=== PATIENT | female | born 1985 | race Caucasian/White ===

== ENCOUNTER 2017-10-09 01:20 | Emergency (ER) | payer MEDICAID ==
[~2017-10-09] VITALS: Ht 160 cm; Wt 81.6 kg
[2017-10-09 01:25] VITALS: BP 129/83
--- NOTE | 2017-10-09 01:30 | NUR ---
32/F CAME IN W C/O FACIAL RASH. REDNESS/RASH WITH WHITE PUSTULES ON RT CHIN NOTED. PT REPORTS ITCHINESS. DENIES FEVER/CHILL, N/V. DENIES OTHER PMH/RX/OTC
[2017-10-09 03:45] VITALS: BP 119/67
--- NOTE | 2017-10-09 03:45 | NUR ---
Patient discharged with v/s stable. Written and verbal after care instructions given and explained. Patient alert, oriented and verbalized understanding of instructions. Ambulatory with steady gait. All questions addressed prior to discharge. ID band removed. Patient advised to follow up with PMD. Rx of BENADRYL, KEFLEX, MUPIROCIN given. Patient educated on indication of medication including possible reaction and side effects. Opportunity to ask questions provided and answered.
== END 2017-10-09 03:45 | disposition home or self-care (01) ==
LOC: MED 01:20
DX: L01.00 Impetigo, unspecified (principal); R21 Rash and other nonspecific skin eruption
CPT/HCPCS: 99283

== ENCOUNTER 2018-12-06 22:20 | Emergency (ER) | payer MEDICAID ==
--- NOTE | 2018-12-06 22:42 | NUR ---
CALLED TO TRIAGE PT, NO ANSWER IN LOBBY. WILL TRY AGAIN
--- NOTE | 2018-12-06 23:00 | NUR ---
CALLED FOR PT IN WAITING ROOM, NO ANSWER FOR SECOND TIME
--- NOTE | 2018-12-06 23:11 | NUR ---
Thuy whitt in ED - 12/06/18 at 2312 by LAMAR CALLED FOR PT, NO ANSWER, PT LWBS AT [phone]
--- NOTE | 2018-12-06 23:12 | NUR ---
CALLED FOR PT, NO ANSWER, PT LWBS AT [phone]
== END 2018-12-06 22:42 | disposition left against medical advice (07) ==
LOC: MED 22:20
DX: R51 Headache (principal); Z53.21 Procedure and treatment not carried out due to patient leaving prior to being seen by health care provider

== ENCOUNTER 2021-03-03 21:44 | Emergency (ER) | payer MEDICAID ==
[~2021-03-03] VITALS: Ht 160 cm; Wt 79.4 kg
[2021-03-03 22:05] VITALS: BP 121/68
--- NOTE | 2021-03-03 22:07 | NUR ---
triaged and waiting in ER lobby.
--- NOTE | 2021-03-03 22:44 | NUR ---
TO ED bed 02
[2021-03-04] MEDS ORDERED: DEXAMETHASONE 4 MG/ML VIAL IM ONE (00:20)
[2021-03-04] MEDS ORDERED: IBUP-2218 PO (00:23)
[2021-03-04 00:45] VITALS: BP 111/55
--- NOTE | 2021-03-04 00:51 | NUR ---
d.c with VSS. d/c education given. opportunity to ask questions given and answered. rx of motrin given.
== END 2021-03-04 00:51 | disposition home or self-care (01) ==
LOC: MED 21:44
DX: J02.9 Acute pharyngitis, unspecified (principal); Z79.899 Other long term (current) drug therapy
CPT/HCPCS: 81025; 87081; 96372; 99283; J1100

== ENCOUNTER 2022-12-20 13:31 | Emergency (ER) | payer MEDICAID, OTHER ==
[~2022-12-20] VITALS: Ht 160 cm; Wt 77.1 kg
[~2022-12-20 13:31] MED LIST: IBUP-2218 PO
[2022-12-20 13:44] VITALS: BP 136/78
--- NOTE | 2022-12-20 14:18 | NUR ---
37yo/f bibf w c/o missed seen at pcp on 12/13/22 passed fetus of 11weeks on monday, now wants to verify everything came out and does not need d and c. pt reports LLQ tenderness, + vaginal spotting. denies dizziness, fevers, chills, n/v/d or other symptoms. vss pmh: anemia allergies: denies
[2022-12-20 14:40] LABS: BASOPHILS # (AUTO) 0.1 K/uL (0.00-0.22); BASOPHILS % (AUTO) 1.1 % (0.0-2.0); EOSINOPHILS # (AUTO) 0.1 K/uL (0-0.4); EOSINOPHILS % (AUTO) 1.2 % (0.0-4.0); HEMOGLOBIN 10.6 g/dL (12.0-16.0); LYMPHOCYTES # (AUTO) 2.9 K/uL (2.5-16.5); LYMPHOCYTES % (AUTO) 36.6 % (20.5-51.1); MEAN CORPUSCULAR HEMOGLOBIN 23 pg (27-31); MEAN CORPUSCULAR HGB CONC 31 g/dL (33-37); MEAN CORPUSCULAR VOLUME 74.4 fL (80-94); MONOCYTES # (AUTO) 0.5 K/uL (0.8-1.0); NEUTROPHILS # (AUTO) 4.3 K/uL (1.8-7.7); NEUTROPHILS % (AUTO) 54.1 % (42.2-75.2); PLATELET COUNT (AUTO) 275 K/uL (140-450); RED BLOOD CELL COUNT(AUTO) 4.58 MIL/uL (4.20-5.40); RED CELL DISTRIBUTION WIDTH 23.6 % (11.6-13.7); WHITE BLOOD COUNT (AUTO) 7.9 K/uL (4.8-10.8)
--- NOTE | 2022-12-20 14:56 | NUR ---
US at bedside
[2022-12-20 16:31] VITALS: BP 127/79
--- NOTE | 2022-12-20 16:31 | NUR ---
Patient discharged with v/s stable. Written and verbal after care instructions given and explained. Patient verbalized understanding. Ambulatory with steady gait. All questions addressed prior to discharge. Advised to follow up with PMD.
== END 2022-12-20 16:31 | disposition home or self-care (01) ==
LOC: MED 13:31
DX: O03.9 Complete or unspecified spontaneous abortion without complication (principal); O99.111 Other diseases of the blood and blood-forming organs and certain disorders involving the immune mechanism complicating pregnancy, first trimester; D64.9 Anemia, unspecified; Z3A.11 11 weeks gestation of pregnancy; Z79.1 Long term (current) use of non-steroidal anti-inflammatories (NSAID)
CPT/HCPCS: 36415; 76817; 84702; 85025; 86900; 86901; 99284; Q0092

== ENCOUNTER 2023-05-07 17:27 | Emergency (ER) | payer OTHER ==
[~2023-05-07] VITALS: Ht 160 cm; Wt 79.9 kg
[2023-05-07 18:04] VITALS: BP 131/88; PULSE 70; RESP 18; TEMP 97.9; O2SAT 100
[2023-05-07] MEDS ORDERED: ONDANSETRON 4 MG ODT PO ONE (18:35)
[2023-05-07] MEDS ORDERED: KETOROLAC 30 MG/ML VIAL IM ONE (18:35)
--- NOTE | 2023-05-07 19:38 | NUR ---
PT RETURN FROM XRAY
[2023-05-07] MEDS ORDERED: IBUP-2213 PO (19:48)
[2023-05-07] MEDS ORDERED: ACET-8905 PO (19:48)
[2023-05-07 20:01] VITALS: BP 127/83; PULSE 79; RESP 15; TEMP 97.8; O2SAT 100
--- NOTE | 2023-05-07 20:01 | NUR ---
Patient discharged with v/s stable. Written and verbal after care instructions given and explained. Patient alert, oriented and verbalized understanding of instructions. Ambulatory with steady gait. All questions addressed prior to discharge. ID band removed. Patient advised to follow up with PMD. Rx of Ibuprofen, [place] given. Patient educated on indication of medication including possible reaction and side effects. Opportunity to ask questions provided and answered.
== END 2023-05-07 20:01 | disposition home or self-care (01) ==
LOC: MED 17:27
DX: S00.83XA Contusion of other part of head, initial encounter (principal); R11.10 Vomiting, unspecified; Z79.899 Other long term (current) drug therapy; Y04.2XXA Assault by strike against or bumped into by another person, initial encounter; Y93.89 Activity, other specified; Y92.89 Other specified places as the place of occurrence of the external cause; Y99.8 Other external cause status
CPT/HCPCS: 70150; 70450; 96372; 99285; J1885; Q0162

== ENCOUNTER 2023-06-21 16:00 | Emergency (ER) | payer OTHER ==
[~2023-06-21] VITALS: Ht 160 cm; Wt 85.0 kg
[~2023-06-21 16:00] MED LIST changes: +ACET-8905 PO; +IBUP-2213 PO
[2023-06-21 16:14] VITALS: BP 138/75; PULSE 94; RESP 18; TEMP 97.8; O2SAT 98
== END 2023-06-21 17:39 | disposition home or self-care (01) ==
LOC: MED 16:00
DX: S00.01XA Abrasion of scalp, initial encounter (principal); W22.8XXA Striking against or struck by other objects, initial encounter; Y92.89 Other specified places as the place of occurrence of the external cause; Y93.89 Activity, other specified; Y99.8 Other external cause status
CPT/HCPCS: 90471; 90715; 99283

== ENCOUNTER 2023-08-10 15:46 | Emergency (ER) | payer OTHER ==
[~2023-08-10] VITALS: Ht 160 cm; Wt 81.6 kg
[2023-08-10 16:04] VITALS: BP 143/84; PULSE 76; RESP 18; TEMP 97.3; O2SAT 99
[2023-08-10 17:13] LABS: BASOPHILS % (AUTO) 0.4 % (0.0-2.0); EOSINOPHILS # (AUTO) 0.1 K/uL (0-0.4); EOSINOPHILS % (AUTO) 1.4 % (0.0-4.0); HEMATOCRIT 34.5 % (36-48); HEMOGLOBIN 11.2 g/dL (12.0-16.0); LYMPHOCYTES # (AUTO) 2.8 K/uL (2.5-16.5); LYMPHOCYTES % (AUTO) 28.5 % (20.5-51.1); MEAN CORPUSCULAR HEMOGLOBIN 26 pg (27-31); MEAN CORPUSCULAR HGB CONC 33 g/dL (33-37); MEAN CORPUSCULAR VOLUME 79.6 fL (80-94); MONOCYTES # (AUTO) 0.7 K/uL (0.8-1.0); MONOCYTES % (AUTO) 6.8 % (1.7-9.3); NEUTROPHILS # (AUTO) 6.2 K/uL (1.8-7.7); NEUTROPHILS % (AUTO) 62.9 % (42.2-75.2); PLATELET COUNT (AUTO) 271 K/uL (140-450); RED BLOOD CELL COUNT(AUTO) 4.34 MIL/uL (4.20-5.40); RED CELL DISTRIBUTION WIDTH 19.8 % (11.6-13.7); WHITE BLOOD COUNT (AUTO) 9.9 K/uL (4.8-10.8)
[2023-08-10 17:15] LABS: APPEARANCE,URINE CLEAR (CLEAR); BILIRUBIN,URINE NEGATIVE (NEGATIVE); BLOOD, URINE NEGATIVE (NEGATIVE); COLOR,URINE YELLOW (YELLOW); LEUKOCYTE ESTERASE ,URINE NEGATIVE (NEGATIVE); NITRITE, URINE NEGATIVE (NEGATIVE); PH,URINE 6.5 (5.0-9.0); PROTEIN,URINE NEGATIVE (NEGATIVE); UGLUCOSE NEGATIVE (NEGATIVE); UROBILINOGEN,URINE 0.2 EU/dL (0.2 - 1)
[2023-08-10 17:53] VITALS: BP 143/84; PULSE 76; RESP 18; TEMP 97.3; O2SAT 99
== END 2023-08-10 17:53 | disposition home or self-care (01) ==
LOC: MED 15:46
DX: O20.0 Threatened abortion (principal); O34.81 Maternal care for other abnormalities of pelvic organs, first trimester; N83.202 Unspecified ovarian cyst, left side; Z3A.08 8 weeks gestation of pregnancy; Z98.890 Other specified postprocedural states; Z79.899 Other long term (current) drug therapy; Z79.1 Long term (current) use of non-steroidal anti-inflammatories (NSAID)
CPT/HCPCS: 36415; 76817; 81003; 84702; 85025; 86900; 86901; 99284; Q0092

== ENCOUNTER 2023-10-10 10:22 | Emergency (ER) | payer OTHER ==
[~2023-10-10] VITALS: Ht 162.6 cm; Wt 72.6 kg
[2023-10-10 10:40] VITALS: BP 125/71; PULSE 86; RESP 20; TEMP 99; O2SAT 98
[2023-10-10] MEDS ORDERED: BENZ-300 PO (11:00)
[2023-10-10 11:38] VITALS: BP 125/71; PULSE 86; RESP 20; TEMP 99; O2SAT 98
[2023-10-10 13:33] LABS: FLU A ANTIGEN negative (NEGATIVE); FLU B ANTIGEN negative (NEGATIVE)
== END 2023-10-10 11:38 | disposition home or self-care (01) ==
LOC: MED 10:22
DX: O99.512 Diseases of the respiratory system complicating pregnancy, second trimester (principal); J02.9 Acute pharyngitis, unspecified; Z20.822 Contact with and (suspected) exposure to COVID-19; Z3A.16 16 weeks gestation of pregnancy; Z79.899 Other long term (current) drug therapy; Z79.1 Long term (current) use of non-steroidal anti-inflammatories (NSAID)
CPT/HCPCS: 99283

== ENCOUNTER 2023-11-02 09:40 | Observation (INO) | payer OTHER ==
[~2023-11-02] VITALS: Ht 160 cm; Wt 90.7 kg
[~2023-11-02 09:40] MED LIST changes: +BENZ-300 PO
[2023-11-02] MEDS ORDERED: PNV91TAB10 PO (10:35)
== END 2023-11-02 10:45 | disposition home or self-care (01) ==
LOC: MLD 09:40
PROVIDERS: ADMIT Obstetrics & Gynecology; ATTEND Obstetrics & Gynecology
DX: O26.892 Other specified pregnancy related conditions, second trimester (principal); R10.9 Unspecified abdominal pain; Z3A.21 21 weeks gestation of pregnancy
CPT/HCPCS: 81000; G0378

== ENCOUNTER 2024-03-07 05:20 | Inpatient (IN) | payer OTHER ==
[~2024-03-07] VITALS: Ht 160 cm; Wt 94.3 kg
[~2024-03-07 05:20] MED LIST changes: -ACET-8905 PO; -BENZ-300 PO; -IBUP-2213 PO; -IBUP-2218 PO; +PNV91TAB10 PO
[2024-03-07] MEDS ORDERED: LACTATED RINGERS 1,000 ML IV SCH ×2 (06:10→09:00)
[2024-03-07] MEDS ORDERED: METOCLOPRAMIDE 10 MG/2 ML INJ VIAL IVP ONE (06:10)
[2024-03-07] MEDS ORDERED: CITRIC ACID/SODIUM CITRATE 30 ML UDC PO ONE (06:10)
[2024-03-07 06:44] LABS: BASOPHILS # (AUTO) 0.1 K/uL (0.00-0.22); BASOPHILS % (AUTO) 1.7 % (0.0-2.0); EOSINOPHILS # (AUTO) 0.1 K/uL (0-0.4); EOSINOPHILS % (AUTO) 1.2 % (0.0-4.0); HEMATOCRIT 33.5 % (36-48); HEMOGLOBIN 11.6 g/dL (12.0-16.0); LYMPHOCYTES # (AUTO) 2.5 K/uL (2.5-16.5); MEAN CORPUSCULAR HEMOGLOBIN 30 pg (27-31); MEAN CORPUSCULAR HGB CONC 35 g/dL (33-37); MEAN CORPUSCULAR VOLUME 86.3 fL (80-94); MONOCYTES # (AUTO) 0.5 K/uL (0.8-1.0); MONOCYTES % (AUTO) 5.8 % (1.7-9.3); NEUTROPHILS # (AUTO) 4.8 K/uL (1.8-7.7); NEUTROPHILS % (AUTO) 60.3 % (42.2-75.2); PLATELET COUNT (AUTO) 232 K/uL (140-450); RED BLOOD CELL COUNT(AUTO) 3.88 MIL/uL (4.20-5.40); RED CELL DISTRIBUTION WIDTH 13.4 % (11.6-13.7)
[2024-03-07 07:05] LABS: INR 0.88 (0.8-1.2); PARTIAL THROMBOPLASTIN TIME 25.9 secs (22-35.6); PROTHROMBIN TIME 9.3 secs (10.8-13.4)
[2024-03-07 07:12] LABS: APPEARANCE,URINE CLEAR (CLEAR); BILIRUBIN,URINE NEGATIVE (NEGATIVE); BLOOD, URINE NEGATIVE (NEGATIVE); COLOR,URINE YELLOW (YELLOW); LEUKOCYTE ESTERASE ,URINE TRACE (NEGATIVE); NITRITE, URINE NEGATIVE (NEGATIVE); PH,URINE 6.5 (5.0-9.0); PROTEIN,URINE NEGATIVE (NEGATIVE); UGLUCOSE NEGATIVE (NEGATIVE); UROBILINOGEN,URINE 0.2 EU/dL (0.2 - 1)
[2024-03-07 07:13] LABS: ALBUMIN 2.2 g/dL (3.4-5.0); ANION GAP 13.3 (8-16); CALCIUM 8.1 mg/dL (8.5-10.1); CARBON DIOXIDE 21.5 mmol/L (21-32); CREATININE 0.8 mg/dL (0.6-1.3); POTASSIUM 3.8 mmol/L (3.5-5.1); TOTAL BILIRUBIN 0.5 mg/dL (0.0-1.0)
[2024-03-07] MEDS ORDERED: diphenhydrAMINE 50 MG/ML VIAL ONE (07:46)
[2024-03-07] MEDS ORDERED: MORPHINE PRES FREE 10 MG/10 ML AMP IV ONE (08:20)
[2024-03-07] MEDS ORDERED: ePHEDrine 50 MG/ML VIAL ONE (08:24)
[2024-03-07 08:44] VITALS: BP 122/67; PULSE 67; RESP 18; TEMP 97.9
[2024-03-07] MEDS ORDERED: ONDANSETRON 4 MG/2 ML VIAL IVP PRN (09:00)
[2024-03-07] MEDS: ceFAZolin 2,000 MG VIAL ONE (09:00)
[2024-03-07] MEDS ORDERED: BLOOD GLUCOSE MONITORING 1 DEV DEV FS SCH (09:00)
[2024-03-07] MEDS ORDERED: METHYLERGONOVINE 0.2 MG/ML AMP ONE (09:05)
[2024-03-07] MEDS ORDERED: KETOROLAC 30 MG/ML VIAL IVP PRN ×3 (09:50→15:30)
[2024-03-07] MEDS ORDERED: oxyCODONE/APAP 5/325 MG 1 TAB TAB PO PRN (09:50)
[2024-03-07] MEDS ORDERED: bisacodyL 5 MG TABEC PO PRN (09:50)
[2024-03-07] MEDS ORDERED: SIMETHICONE 80 MG TAB.CHEW PO PRN (09:50)
[2024-03-07] MEDS ORDERED: METHYLERGONOVINE 0.2 MG/ML AMP IM PRN ×2 (09:50)
[2024-03-07] MEDS ORDERED: MEASLES, MUMPS, AND RUBELLA 1 VIAL SQVAC ONE (09:50)
[2024-03-07] MEDS: diphenhydrAMINE 50 MG/ML VIAL IVP PRN (10:00)
[2024-03-07] MEDS ORDERED: MEASLES, MUMPS, AND RUBELLA 1 VIAL SQVAC PRN (10:10)
[2024-03-07] MEDS: OXYTOCIN/0.9 % SODIUM CHLORIDE 500 ML IV ONE (10:22)
[2024-03-07] MEDS ORDERED: PROPOFOL 200 MG/20 ML VIAL IV ONE (13:05)
[2024-03-07] MEDS: OXYTOCIN/0.9 % SODIUM CHLORIDE 500 ML IV SCH (22:26)
[2024-03-08 05:37] LABS: BASOPHILS % (AUTO) 0.2 % (0.0-2.0); EOSINOPHILS % (AUTO) 0.1 % (0.0-4.0); HEMATOCRIT 27.8 % (36-48); HEMOGLOBIN 9.6 g/dL (12.0-16.0); LYMPHOCYTES % (AUTO) 13.5 % (20.5-51.1); MEAN CORPUSCULAR HEMOGLOBIN 30 pg (27-31); MEAN CORPUSCULAR HGB CONC 34 g/dL (33-37); MEAN CORPUSCULAR VOLUME 86.2 fL (80-94); MONOCYTES # (AUTO) 0.8 K/uL (0.8-1.0); MONOCYTES % (AUTO) 5.1 % (1.7-9.3); NEUTROPHILS # (AUTO) 12.1 K/uL (1.8-7.7); NEUTROPHILS % (AUTO) 81.1 % (42.2-75.2); PLATELET COUNT (AUTO) 205 K/uL (140-450); RED BLOOD CELL COUNT(AUTO) 3.23 MIL/uL (4.20-5.40); RED CELL DISTRIBUTION WIDTH 13.1 % (11.6-13.7)
[2024-03-08] MEDS: SIMETHICONE 80 MG TAB.CHEW PO PRN (15:44)
[2024-03-08] MEDS: oxyCODONE/APAP 5/325 MG 1 TAB TAB PO PRN ×2 (15:44→21:12)
[2024-03-08] MEDS: IBUPROFEN 800 MG TAB PO PRN (23:07)
[2024-03-08] MEDS: bisacodyL 5 MG TABEC PO PRN (23:09)
[2024-03-09 06:20] LABS: BASOPHILS % (AUTO) 0.4 % (0.0-2.0); EOSINOPHILS # (AUTO) 0.1 K/uL (0-0.4); EOSINOPHILS % (AUTO) 0.7 % (0.0-4.0); HEMATOCRIT 29.7 % (36-48); HEMOGLOBIN 10.2 g/dL (12.0-16.0); LYMPHOCYTES # (AUTO) 3.4 K/uL (2.5-16.5); LYMPHOCYTES % (AUTO) 28.5 % (20.5-51.1); MEAN CORPUSCULAR HEMOGLOBIN 30 pg (27-31); MEAN CORPUSCULAR HGB CONC 34 g/dL (33-37); MEAN CORPUSCULAR VOLUME 87.2 fL (80-94); MONOCYTES # (AUTO) 0.7 K/uL (0.8-1.0); MONOCYTES % (AUTO) 5.7 % (1.7-9.3); NEUTROPHILS # (AUTO) 7.8 K/uL (1.8-7.7); NEUTROPHILS % (AUTO) 64.7 % (42.2-75.2); PLATELET COUNT (AUTO) 226 K/uL (140-450); RED BLOOD CELL COUNT(AUTO) 3.41 MIL/uL (4.20-5.40); RED CELL DISTRIBUTION WIDTH 13.5 % (11.6-13.7)
== END 2024-03-09 13:55 | disposition home or self-care (01) | DRG 540 ==
LOC: MLD 05:20 → MFCC 10:30
PROVIDERS: ADMIT Obstetrics & Gynecology; ATTEND Obstetrics & Gynecology
PROC: 3E0234Z Introduction of Serum, Toxoid and Vaccine into Muscle, Percutaneous Approach (ICD-10-PCS; 2024-03-07)
PROC: 10D00Z1 Extraction of Products of Conception, Low, Open Approach (ICD-10-PCS; principal; 2024-03-07 07:30)
DX: O34.211 Maternal care for low transverse scar from previous cesarean delivery (principal); E43 Unspecified severe protein-calorie malnutrition; D64.89 Other specified anemias; Z37.0 Single live birth; O25.13 Malnutrition in pregnancy, third trimester; D72.829 Elevated white blood cell count, unspecified; O90.81 Anemia of the puerperium; Z3A.38 38 weeks gestation of pregnancy; Z68.36 Body mass index [BMI] 36.0-36.9, adult
CPT/HCPCS: 36415; 80053; 81003; 85025; 85610; 85730; 86592; 86886; 86900; 86901; 87081; 90715; J0690; J1100; J1200; J1885; J2210; J2270; J2405; J2590; J2704; J2765; J7060; J7120

== ENCOUNTER 2024-04-25 06:49 | Day surgery (SDC) | payer OTHER ==
[2024-04-25] MEDS ORDERED: BUPIVACAINE-MPF 0.25% 30 ML VIAL INJ ONE (12:30)
[2024-04-25] MEDS ORDERED: LIDOCAINE/EPI 1% 1:100000 20 ML VIAL INJ ONE (12:30)
[2024-04-25] MEDS ORDERED: fentaNYL citrate 0.05 MG/ML VIAL ONE (13:09)
[2024-04-25] MEDS ORDERED: MIDAZOLAM 2 MG/2 ML VIAL ONE (13:09)
[2024-04-25] MEDS ORDERED: ROCURONIUM 50 MG/5 ML VIAL IV ONE ×2 (13:09)
[2024-04-25] MEDS ORDERED: SEVOFLURANE 250 ML BTL INH ONE (13:15)
[2024-04-25] MEDS ORDERED: ONDANSETRON 4 MG/2 ML VIAL ONE (13:21)
[2024-04-25] MEDS ORDERED: METOCLOPRAMIDE 10 MG/2 ML INJ VIAL ONE (13:21)
[2024-04-25] MEDS ORDERED: KETOROLAC 30 MG/ML VIAL ONE (13:21)
[2024-04-25] MEDS ORDERED: PROPOFOL 200 MG/20 ML VIAL IV ONE (13:21)
[2024-04-25] MEDS ORDERED: SUGAMMADEX SODIUM 200 MG/2 ML VIAL IV ONE (14:04)
[2024-04-25] MEDS ORDERED: MEPERIDINE 25 MG/ML SYR IVP PRN (14:25)
[2024-04-25] MEDS ORDERED: diphenhydrAMINE 50 MG/ML VIAL IVP PRN (14:25)
[2024-04-25] MEDS: HYDROmorphone 1 MG/ML AMP IVP PRN (14:25)
[2024-04-25] MEDS ORDERED: LACTATED RINGERS 1,000 ML IV SCH (14:25)
[2024-04-25] MEDS ORDERED: ONDANSETRON 4 MG/2 ML VIAL IVP PRN (14:25)
[2024-04-25] MEDS ORDERED: HYDROmorphone PFS 2 MG/ML SYR ONE (14:27)
== END 2024-04-25 16:28 | disposition home or self-care (01) ==
LOC: MDS 06:49 → MMU 06:50 → MDS 16:28
PROVIDERS: ATTEND Obstetrics & Gynecology
DX: Z30.2 Encounter for sterilization (principal); Z98.891 History of uterine scar from previous surgery
CPT/HCPCS: 58661; 93005; J1170; J1885; J2001; J2250; J2405; J2704; J2765; J3010; J3490; 88302